=== PATIENT | male | born 1995 | race Caucasian/White ===

== ENCOUNTER 2018-04-21 19:02 | Emergency (ER) | payer MEDICAID ==
[2018-04-21] MEDS ORDERED: LORazepam 2 MG/ML INJ ONE (19:18)
[2018-04-21] MEDS ORDERED: LORazepam 2 MG/ML INJ IVP ONE (19:20)
--- NOTE | 2018-04-21 19:31 | EDPHY ---
H & P Time Seen by Provider: 04/21/18 19:04 HPI/ROS: CHIEF COMPLAINT: Anxiety HISTORY OF PRESENT ILLNESS: Patient is a 22-year-old male with a history of schizophrenia who presents to the emergency department with an anxiety attack. Patient states he hears voices regularly. However, they slightly worsened. This caused him to have an anxiety attack. This is happened recurrently. He normally takes Ativan but ran out of his prescription. Subsequently called the ambulance. He states normally takes Ativan in his parents picked him up and he feels much better. He denies any chest pain or shortness of breath. He states he feels slightly better at this time. Patient denies suicidal thoughts or thoughts of wanting to harm anyone. REVIEW OF SYSTEMS: My complete review of systems is negative except as mentioned in the HPI. Past Medical/Surgical History: Includes schizophrenia Physical Exam: Vitals noted GENERAL: Well-appearing, in no acute distress, alert. HEENT: Eyes normal to inspection, normal pharynx, no signs of dehydration. NECK: No thyromegaly, no lymphadenopathy, supple. RESPIRATORY: Clear to auscultation bilaterally, no rales, rhonchi or wheezing. CVS: Regular rate and rhythm, no rubs, murmurs, or gallops. ABDOMEN: Soft, nontender, nondistended, no organomegaly. BACK: Normal to inspection, no CVA tenderness. SKIN: Normal color, no rash, warm, dry. No pallor. EXTREMITIES: No pedal edema, no calf tenderness, no Homans sign or cords, no joint swelling. NEURO/PSYCH: Alert and oriented x3, flat affect, normal motor sensory exam. No obvious cranial nerve deficit. Constitutional: Initial Vital Signs Temperature (C) 36.9 C 04/21/18 19:35 Heart Rate 90 04/21/18 19:35 Respiratory Rate 20 04/21/18 19:35 Blood Pressure 135/79 H 04/21/18 19:35 O2 Sat (%) 94 04/21/18 19:35 O2 Delivery Mode Room Air Allergies/Adverse Reactions: No Known Allergies Allergy (Unverified 04/21/18 19:34) Home Medications: Medication Instructions Recorded Clonidine 04/21/18 Gabapentin 04/21/18 LORazepam [Ativan (*)] 1 mg PO TID #9 tab 04/21/18 Ranitidine HCl 04/21/18 Medical Decision Making ED Course/Re-evaluation: In the emergency department I discussed possible etiologies. I answered all of his questions. Patient was given Ativan 1 mg IV. 830: I rechecked the patient. He is feeling much better. No deficits. No complaints of chest pain or shortness of breath. He is given warnings prior to leaving. He will return with worsening symptoms. Differential Diagnosis: My differential includes but is not limited to anxiety, ACS, acute PA, electrolyte abnormality, sugar abnormality, suicidal ideation - Data Points Medications Given: Discontinued Medications Lorazepam (Ativan Injection) 1 mg IVP EDNOW ONE Stop: 04/21/18 19:21 Last Admin: 04/21/18 19:24 Dose: 1 mg Departure - Departure Disposition: Home, Routine, Self-Care Clinical Impression: Anxiety Condition: Good Instructions: Anxiety (ED) Additional Instructions: Return with worsening symptoms or any other concerns. Referrals: ERICK PADILLA [Non Staff Provider (MD)] - As per Instructions Prescriptions: LORazepam [Ativan (*)] 1 mg PO TID #9 tab
[2018-04-21 20:50] VITALS: BP 119/78
== END 2018-04-21 20:50 | disposition home or self-care (01) ==
DX: F41.9 Anxiety disorder, unspecified (principal)
CPT/HCPCS: 96374; J2060